=== PATIENT | male | born 2005 | race American Indian/Alaskan Native ===

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

== ENCOUNTER 2023-09-21 02:40 | Emergency (ER) | payer MEDICAID, OTHER ==
[2023-09-21] MEDS ORDERED: Naloxone 2 MG/2 ML Syringe IVPUSH PRN (03:04)
[2023-09-21] MEDS ORDERED: HYDROmorphone 1 MG/ML Syringe IVPUSH ONE (03:04)
[2023-09-21] MEDS ORDERED: Tranexamic Acid 1,000 MG in Sodium Chloride 0.9% 100 ML IV ONE (03:11)
[2023-09-21] MEDS: Tranexamic Acid 1,000 MG/10 ML Vial ONE (03:52)
[2023-09-21] MEDS ORDERED: Lactated Ringers 1,000 ML IV ONE (03:52)
[2023-09-21] MEDS ORDERED: Diphtheria,Pertussis(Acell),Tetanus Vaccine 0.5 ML Syringe IM ONE (05:00)
[2023-09-21 05:13] LABS: BASOPHILS PERCENT AUTO 0.1 % (0.0-1.0); EOSINOPHILS PERCENT AUTO 0.2 % (1.0-3.0); HEMATOCRIT 46.2 % (40.0-54.0); HEMOGLOBIN 16.2 g/dL (14.0-18.0); LYMPHOCYTES PERCENT AUTO 12.2 % (20.5-50.1); MEAN CORPUSCULAR HEMOGLOBIN 30.2 pg (27.0-34.0); MEAN CORPUSCULAR HGB CONC 35.1 g/dL (33.0-35.0); MONOCYTES PERCENT AUTO 3.6 % (2-8); NEUTROPHILS PERCENT AUTO 83.9 % (42.2-75.2); PLATELET COUNT,PLT 234 10^3/uL (150-450); RED BLOOD CELL COUNT 5.37 10^6/uL (4.6-6.2); WHITE BLOOD CELL COUNT,WBC 15.4 10^3/uL (5.0-10.0)
[2023-09-21] MEDS ORDERED: Lidocaine 1% with EPINEPHrine 1:100,000 20 ML MDV INJECT ONE (05:16)
[2023-09-21 05:22] LABS: A/G RATIO 1.5; ALBUMIN 4.7 g/dL (3.4-5.0); BILIRUBIN TOTAL 0.9 mg/dL (0.2-1.0); CALCIUM 8.4 mg/dL (8.5-10.1); CREATININE 1.17 mg/dL (0.70-1.30); EST CRCL DRUG DOSING (CG) 103.38 mL/min; PROTEIN TOTAL,TP 7.9 g/dL (6.4-8.2)
[2023-09-21 05:26] LABS: ANION GAP 21.7 mEq/L (7-13); POTASSIUM,K 3.7 mmol/L (3.5-5.1)
[2023-09-21] MEDS ORDERED: ceFAZolin 1 GM Vial IVPUSH ONE (05:43)
== END 2023-09-21 07:55 ==
LOC: DL.ED 02:40
DX: S01.01XA Laceration without foreign body of scalp, initial encounter (principal); S01.81XA Laceration without foreign body of other part of head, initial encounter; S41.011A Laceration without foreign body of right shoulder, initial encounter; S11.91XA Laceration without foreign body of unspecified part of neck, initial encounter; R58 Hemorrhage, not elsewhere classified; F17.210 Nicotine dependence, cigarettes, uncomplicated; Z23 Encounter for immunization; X99.1XXA Assault by knife, initial encounter
CPT/HCPCS: 12004; 36415; 80053; 80307; 85025; 86850; 86900; 86901; 90471; 96374; 96375; 99284; 99285-25